=== PATIENT | male | born 1945 | race Caucasian/White ===

== ENCOUNTER 2017-11-20 08:27 | Emergency (ER) | payer MEDICARE, BC ==
[~2017-11-20] VITALS: Ht 177.8 cm; Wt 77.3 kg
[~2017-11-20 08:27] MED LIST: FLONASE NASAL50 MCG; MUCINEX600 MG PO; PULMICORT FLEX90 MCG IN; ZITHROMAX500 MG PO
[2017-11-20] MEDS ORDERED: DICLOFENAC50 MG PO (08:56)
[2017-11-20 09:09] LABS: HEMATOCRIT 42.4 % (39.0-50.0); HEMOGLOBIN 14.1 g/dl (14.0-18.0); IMMATURE GRANULOCYTES 0.3 % (0.0-5.0); MEAN CELL VOLUME 98.4 fL CALC (80.0-100.0); MEAN CORPUSCULAR HGB 32.7 pG CALC (26.0-32.0); MEAN CORPUSCULAR HGB CONC 33.3 g/L CALC (32.0-36.0); NEUT# 5.5 thou/uL (1.82-7.42); RED BLOOD COUNT 4.31 mill/uL (4.70-6.10); RED CELL DISTRI WIDTH 11.8 % (11.5-15.5)
[2017-11-20 09:27] LABS: ALBUMIN 4.1 g/dL (3.2-5.0); BILIRUBIN, TOTAL 0.5 mg/dL (0.0-1.4); CREATININE 1.4 mg/dL (0.7-1.3); TOTAL PROTEIN 6.8 g/dL (6.3-8.2)
[2017-11-20 10:25] LABS: URINE BILIRUBIN - DIPSTICK NEGATIVE (NEGATIVE); URINE BLOOD DIPSTICK NEGATIVE (NEGATIVE); URINE COLOR YELLOW; URINE GLUCOSE - DIPSTICK NEGATIVE (NEGATIVE); URINE KETONE NEGATIVE (NEGATIVE); URINE LEUK ESTERASE NEGATIVE (NEGATIVE); URINE NITRITE - DIPSTICK NEGATIVE (Negative); URINE PROTEIN - DIPSTICK NEGATIVE (NEG-TRACE); URINE SPECIFIC GRAVITY 1.025; URINE UROBILINOGEN - DIPSTICK 0.2 E.U./dL (0.2)
[2017-11-20 10:27] LABS: URINE CLARITY CLEAR
[2017-11-20 11:44] VITALS: BP 145/88
[2017-11-20] MEDS ORDERED: BENTYL10 MG PO (12:18)
[2017-11-20] MEDS ORDERED: ONDANSETRON4 MG PO (12:18)
== END 2017-11-20 12:32 | disposition home or self-care (01) ==
LOC: ED 08:27
PROVIDERS: Emergency Medicine
DX: K52.9 Noninfective gastroenteritis and colitis, unspecified (principal); R00.1 Bradycardia, unspecified

== ENCOUNTER 2017-11-23 08:39 | Emergency (ER) | payer MEDICARE, BC ==
[~2017-11-23] VITALS: Ht 177.8 cm; Wt 70.0 kg
[~2017-11-23 08:39] MED LIST changes: +BENTYL10 MG PO; +DICLOFENAC50 MG PO; +ONDANSETRON4 MG PO
[2017-11-23] MEDS ORDERED: METRONIDAZOL500 MG PO (09:56)
[2017-11-23] MEDS ORDERED: BENTYL10 MG PO (09:56)
[2017-11-23] MEDS ORDERED: CIPROFLOXACN500 MG PO (09:56)
[2017-11-23 10:08] VITALS: BP 138/76
[2017-11-23 11:04] LABS: C. DIFFICILE TOXIN A&B NEGATIVE (NEGATIVE)
== END 2017-11-23 10:20 | disposition home or self-care (01) ==
LOC: ED 08:39
PROVIDERS: Emergency Medicine
DX: R19.7 Diarrhea, unspecified (principal)

== ENCOUNTER → 2018-05-20 | Outpatient (REF) | payer MEDICARE, BC ==
[~2018-05-20] MED LIST changes: +CIPROFLOXACN500 MG PO; +METRONIDAZOL500 MG PO
== END | disposition home or self-care (01) ==
LOC: CT 09:57
PROVIDERS: ATTEND Nurse Practitioner
DX: G45.9 Transient cerebral ischemic attack, unspecified (principal)

== ENCOUNTER → 2018-05-22 | Outpatient (REF) | payer MEDICARE, BC ==
[2018-05-22 08:31] LABS: HEMATOCRIT 44.2 % (39.0-50.0); HEMOGLOBIN 14.5 g/dl (14.0-18.0); MEAN CELL VOLUME 97.8 fL CALC (80.0-100.0); MEAN CORPUSCULAR HGB 32.1 pG CALC (26.0-32.0); MEAN CORPUSCULAR HGB CONC 32.8 g/L CALC (32.0-36.0); RED BLOOD COUNT 4.52 mill/uL (4.70-6.10); RED CELL DISTRI WIDTH 11.9 % (11.5-15.5)
[2018-05-22 09:49] LABS: ALBUMIN 4.6 g/dL (3.2-5.0); ALKALINE PHOSPHATASE 51 u/l (38-126); ANION GAP 13 (6-22 (CALC)); BILIRUBIN, TOTAL 0.9 mg/dL (0.0-1.4); BUN 21 mg/dL (8-23); BUN/CREATININE RATIO 16 (12-20 (CALC)); CALCULATED LDLCHOLESTEROL 165 mg/dL (62-129 (CALC)); CARBON DIOXIDE 27 mmol/l (22-30); CHLORIDE 103 mmol/l (95-108); CHOLESTEROL HDL RATIO 5.6 (<4.4 (CALC)); CREATININE 1.3 mg/dL (0.7-1.3); GFR 54 ML/MIN (>=60 (CALC)); GFR FOR AFR.AMER. > 60 ML/MIN (>=60 (CALC)); HDL CHOLESTEROL 44 mg/dL (>=40); POTASSIUM 4.7 mmol/l (3.5-5.1); SGOT/AST 29 u/l (19-48); SODIUM 139 mmol/l (137-146); TOTAL CHOLESTEROL 249 mg/dl (0-199); TOTAL PROTEIN 7.3 g/dL (6.3-8.2); TOTAL TRIGLYCERIDES 199 mg/dl (30-149); VLDL CHOLESTROL 40 mg/dl (0-38 (CALC))
[2018-05-22 10:13] LABS: TSH, 3RD GENERATION 3.54 uIU/mL (0.47 - 4.68)
== END | disposition home or self-care (01) ==
LOC: LAB 08:05
PROVIDERS: ATTEND Nurse Practitioner
DX: J45.909 Unspecified asthma, uncomplicated (principal); M15.9 Polyosteoarthritis, unspecified; E78.5 Hyperlipidemia, unspecified

== ENCOUNTER 2023-05-06 01:36 | Emergency (ER) | payer MEDICARE, OTHER ==
[~2023-05-06] VITALS: Ht 177.8 cm; Wt 73.0 kg
[2023-05-06] VITALS (9 sets, daily range): BP systolic 145–177; BP diastolic 77–90
[~2023-05-06 01:36] MED LIST changes: +DOXY-CAPS100 MG PO
[2023-05-06] MEDS ORDERED: TYLENOL500 MG PO (02:00)
[2023-05-06] MEDS ORDERED: oxyCODONE 10MG/APAP 325 MG 1 COMBO TAB PO ONE (02:15)
[2023-05-06] MEDS ORDERED: predniSONE 20 MG/TAB PO ONE (02:15)
[2023-05-06] MEDS ORDERED: PERCOCET 10/31 COMBO PO ×2 (04:02→13:03)
[2023-05-06] MEDS ORDERED: PREDNISONE20 MG PO (04:02)
== END 2023-05-06 04:15 | disposition home or self-care (01) ==
LOC: ED 01:36
DX: M51.17 Intervertebral disc disorders with radiculopathy, lumbosacral region (principal)

== ENCOUNTER 2024-05-06 02:18 | Observation (INO) | payer MEDICARE, OTHER ==
[~2024-05-06] VITALS: Ht 177.8 cm; Wt 70.4 kg
[2024-05-06] VITALS (8 sets, daily range): BP systolic 122–192; BP diastolic 72–104
[~2024-05-06 02:18] MED LIST changes: +PERCOCET 10/31 COMBO PO; +PREDNISONE20 MG PO; +TYLENOL500 MG PO
--- NOTE | 2024-05-06 02:18 | NUR ---
PT TO RM #5 VIA EMS AT BEDSIDE. PT CONNECTED ON ALL MONITORING.
[2024-05-06] MEDS ORDERED: ONDANSETRON HCl 4 MG/2 ML SDV IV ONE (02:35)
[2024-05-06] MEDS ORDERED: ACETAMINOPHEN 1,000 MG/100 ML VIAL IV ONE (02:40)
--- NOTE | 2024-05-06 03:26 | NUR ---
PT RESTING IN RM AWAITING RESULTS AT THIS TIME IN NO APPARENT DISTRESS. CALL LIGHT WITHIN REACH AND PT HAS NO NEEDS OR CONCERNS.
[2024-05-06 03:33] LABS: ALBUMIN 4.2 g/dL (3.2-5.0); ALKALINE PHOSPHATASE 55 u/l (38-126); ANION GAP 11 (6-22 (CALC)); BILIRUBIN, TOTAL 0.6 mg/dL (0.2-1.3); BUN 15 mg/dL (8-23); BUN/CREATININE RATIO 12 (12-20 (CALC)); CARBON DIOXIDE 25 mmol/l (22-30); CHLORIDE 99 mmol/l (95-108); CREATININE 1.2 mg/dL (0.7-1.3); ESTIMATED GFR 61 ML/MIN (>=90 (CALC)); POTASSIUM 4.6 mmol/l (3.5-5.1); SGOT/AST 43 u/l (19-48); TOTAL PROTEIN 7.1 g/dL (6.3-8.2)
[2024-05-06 03:38] LABS: SODIUM 130 mmol/l (137-146)
[2024-05-06 03:45] LABS: BASO% 0.9 % (0-3); EOS% 0.9 % (0-8); HEMATOCRIT 40.1 % (39.0-50.0); HEMOGLOBIN 13.2 g/dl (14.0-18.0); IMMATURE GRANULOCYTES 0.5 % (0.0-5.0); LYMPH% 39.8 % (15-41); MEAN CORPUSCULAR HGB 32.6 pG CALC (26.0-32.0); MEAN CORPUSCULAR HGB CONC 32.9 g/dL CAL (32.0-36.0); MONO% 11.6 % (2-13); NEUT% 46.3 % (42-76); RED BLOOD COUNT 4.05 mill/uL (4.70-6.10); RED CELL DISTRI WIDTH 11.5 % (11.5-15.5)
--- NOTE | 2024-05-06 04:31 | NUR ---
PT RESTING IN RM AWAITING RESULTS AT THIS TIME IN NO APPARENT DISTRESS. CALL LIGHT WITHIN REACH AND PT HAS NO NEEDS OR CONCERNS.
--- NOTE | 2024-05-06 05:31 | NUR ---
PT RESTING IN RM AWAITING RESULTS AT THIS TIME IN NO APPARENT DISTRESS. CALL LIGHT WITHIN REACH AND PT HAS NO NEEDS OR CONCERNS.
--- NOTE | 2024-05-06 06:29 | NUR ---
PT RESTING IN RM AWAITING RESULTS AT THIS TIME IN NO APPARENT DISTRESS. CALL LIGHT WITHIN REACH AND PT HAS NO NEEDS OR CONCERNS.
--- NOTE | 2024-05-06 07:04 | NUR ---
REPORT GIVEN TO NGUYEN PAYNE AND CARE RELINQUISHED AT THIS TIME.
--- NOTE | 2024-05-06 07:46 | NUR ---
pt walked to the bathroom, pt changed into a gown, pt back in bed, vss, call light within reach, no-slip socks placed on pts feet, gave pt a warm riddhi
--- NOTE | 2024-05-06 08:15 | NUR ---
REPORT RECEIVED FROM NGUYEN GEE
--- NOTE | 2024-05-06 08:15 | NUR ---
CALLED [facility] SPOKE WITH [facility], GAVE PT INFO, PT TO BE TRANSPORTED TO [facility] BED 278
[2024-05-06] MEDS ORDERED: PAXLOVID PO (08:20)
[2024-05-06] MEDS ORDERED: VOLTAREN75 MG PO (08:20)
[2024-05-06] MEDS ORDERED: NEURONTIN100 MG PO (08:21)
[2024-05-06] MEDS ORDERED: ALL DAY ALLG10 MG PO (08:21)
--- NOTE | 2024-05-06 08:22 | NUR ---
PT ARRIVED TO MED/SURG ROOM 278 IN STABLE CONDITION VIA WC ACCOMPANIED BY NGUYEN GEE. PT AMBULATED TO STANDING SCALE AND BEDSIDE. WT AND VS OBTAINED.PT REPORTS N/V/D AND WEAKNESS SINCE 05/02/24 BEING DX WITH COVID ON 05/04/24. PT A&O X3, ORIENTED TO ROOM AND CALL LIGHT SYSTEM. PT DENIES ANY CURRENT PAIN OR DISCOMFORTS, PAIN SCALE AND REPORTING EDUCATED.ASSESSMENT COMPLETED; RESPIRATIONS EVEN AND UNLABORED ON RA,CLEAR LUNG SOUNDS. ABDOMEN SOFT ON PALPATION AND ACTIVE IN ALL 4 QUADRANTS, LAST 05/06/24. STRONG PEDAL PULSES;SKIN INTACT.#22G TO LAC FLUSHED AND PATENT, EMS #20G TO LH PATENT AND NS TO BE STARTED @ 100ML/HR. FALL AND ALLERGY BAND APPLIED TO RIGHT ARM. PT ENCOURAGED TO CALL FOR ASSISTANCE IF NEEDED.CALL LIGHT IN REACH;FREQUENT ROUNDS MADE.
--- NOTE | 2024-05-06 08:54 | NUR ---
AT BEDSIDE DISCUSSING POC.
[2024-05-06] MEDS ORDERED: REMDESIVIR 200 MG in SODIUM CHLORIDE 0.9% 210 ML IV SCH (09:00)
--- NOTE | 2024-05-06 09:05 | NUR ---
PT RESTING IN SEMI FOWLERS POSITION,A&O TO PERSON. HX DEMENTIA. PT DENIES ANY CURRENT PAIN OR DISCOMFORTS, PAIN SCALE AND REPORTING EDUCATED. ASSESSMENT COMPLETED.RESPIRATIONS SHALLOW ON RA, WHEEZE/DIMINISHED LUNG SOUNDS NOTED WITH NON-PRODUCTIVE COUGH. ABDOMEN SOFT ON PALPATION AND ACTIVE IN ALL 4 QUADRANTS. WEAK PEDAL PULSES.GENERALIZED BRUISING NOTED BUT SKIN OTHERWISE INTACT. TELE MONITORING IN PLACE. NO IV SITE NOTED, NEW #22G TO RAC STARTED ON 1ST ATTEMPT BY THIS GLASS SILVERER.PT DENIES ANY ADDITIONAL NEEDS AND IS ENCOURAGED TO CALL FOR ASSISTANCE IF NEEDED.FALL PRECAUTIONS IN PLACE WITH BED IN THE LOWEST POSITION AND BED ALARM ON FOR SAFETY.CALL LIGHT IN REACH;FREQUENT ROUNDS MADE.
[2024-05-06] MEDS ORDERED: SODIUM CHLORIDE 0.9% 1,000 ML IV PRN (09:40)
[2024-05-06] MEDS ORDERED: ALBUTEROL SULFATE 2.5 MG VIAL IN PRN (09:45)
[2024-05-06] MEDS ORDERED: ACETAMINOPHEN 325 MG/TAB PO PRN (11:55)
--- NOTE | 2024-05-06 12:15 | NUR ---
PT RESTING IN SEMI FOWLERS POSITION. RESPIRATIONS EVEN AND UNLABORED ON RA. PT REPORTS HEADACHE PAIN AND IS MEDICATED WITH PRN TYLENOL 650MG PO AT THIS TIME. IV SITES X2 PATENT WITH NS INFUSING WITH EASE PER ORDER.PT DENIES ANY ADDITIONAL NEEDS AND IS ENCOURAGED TO CALL FOR ASSISTANCE IF NEEDED.CALL LIGHT IN REACH;FREQUENT ROUNDS MADE.
--- NOTE | 2024-05-06 15:38 | NUR ---
PT RESTING IN SUPINE POSITION.RESPIRATIONS EVEN AND UNLABORED ON RA. PT DENIES ANY CURRENT PAIN BUT DOES REPORT INSOMNIA OVER THE PAST FEW DAYS AND REQUESTS MEDICATION FOR SLEEP THIS EVENING. CLAIR, SARARP TO BE NOTIFIED OF REQUEST. IV SITE X2 REMAIN PATENT WITH NS INFUSING PER ORDER. URINAL EMPTIED OF 200CC OF CLEAR/YELLOW URINE.PT DENIES ANY ADDITIONAL NEEDS.CALL LIGHT IN REACH;FREQUENT ROUNDS MADE.
[2024-05-06] MEDS ORDERED: Zaleplon 5 MG/CAP PO PRN (15:50)
[2024-05-06] MEDS ORDERED: ALPRAZolam 0.25 MG PO PRN (16:55)
--- NOTE | 2024-05-06 17:07 | NUR ---
PT MEDICATED WITH PRN XANAX 0.25MG PO
--- NOTE | 2024-05-06 20:15 | NUR ---
PT A X4, ABLE TO MAKE NEEDS KNOWN. PT AFEBRILE. PT DENIES CP, SOB OR DISTRESS AT THIS TIME. LS CLEAR THROUGHOUT, BSX4 ACTIVE. IV INFUSING ORDERED, NO S/S OF INFILTRATION OR REDNESS AT SITE. CALL LIGHT IN REACH. WILL MONITOR.
--- NOTE | 2024-05-07 00:15 | NUR ---
PT RESTING IN BED WITH EYES CLOSED. NO DISTRESS NOT AT THIS TIME. RESP. EVEN/ UNLABORED. CALL LIGHT IN REACH. WILL MONITOR.
--- NOTE | 2024-05-07 03:15 | NUR ---
pt medicated per request for chang as ordered, pt stated relief of chang. PRN effective. call light in reach. will monitor.
[2024-05-07 03:40] VITALS: BP 150/78
--- NOTE | 2024-05-07 04:15 | NUR ---
PT RESTING IN BED WITH EYES CLOSED. RESP. EVEN/UNLABORED, PRECAUTIONS INTACT, NO DISTRESS NOTED. IV INTACT, INFUSING NS@100ML/HR, NO S/S OF REDNESS OR INFILTRATION NOTED AT SITE. CALL LIGHT IN REACH. WILL MONITOR.
[2024-05-07 05:26] LABS: HEMATOCRIT 37.7 % (39.0-50.0); LYMPH% 13.4 % (15-41); MEAN CELL VOLUME 97.7 fL CALC (80.0-100.0); MEAN CORPUSCULAR HGB 33.7 pG CALC (26.0-32.0); MEAN CORPUSCULAR HGB CONC 34.5 g/dL CAL (32.0-36.0); MONO% 3.3 % (2-13); NEUT# 4.61 thou/uL (1.82-7.42); NEUT% 83.3 % (42-76); RED BLOOD COUNT 3.86 mill/uL (4.70-6.10); RED CELL DISTRI WIDTH 11.5 % (11.5-15.5)
[2024-05-07 05:34] LABS: ALBUMIN 3.5 g/dL (3.2-5.0); BILIRUBIN, TOTAL 0.6 mg/dL (0.2-1.3); CREATININE 1.1 mg/dL (0.7-1.3); MAGNESIUM 1.7 mg/dL (1.6-2.3)
[2024-05-07 05:38] LABS: POTASSIUM 5.2 mmol/l (3.5-5.1)
--- NOTE | 2024-05-07 07:36 | NUR ---
PATIENT LYING IN BED WATCHING TV. BREATHING UNLABORED ON ROOM AIR. IV IN LAC INFUSING FLUIDS PER EMAR;SITE CLEAN AND INTACT. IV IN LEFT HAND SL;SITE CLEAN AND INTACT. PATIENT DENIES ANY NEEDS AT THIS TIME. PT REQUEST TO HAVE DIET CHANGED;INFORMED PT DIETARY WILL BE INFORMED. NO OTHER NEEDS AT THIS TIME. BED IN LOWEST POSITION. PERSONAL ITEMS WITHIN REACH. POC ONGOING. ASSESSMENT COMPLETED.
[2024-05-07 08:13] VITALS: BP 151/94
--- NOTE | 2024-05-07 12:07 | NUR ---
PATIENT SITTING UP ON THE EDGE OF THE BED EATING LUNCH. BREATHING UNLABORED ON ROOM AIR. IV IN LAC INFUSING FLUIDS PER EMAR;SITE CLEAN AND INTACT. IV IN LEFT HAND SL;SITE CLEAN AND INTACT. PT DENIES ANY PAIN OR N/D/V AT THIS TIME. BED IN LOWEST POSITION. POC ONGOING. NO NEEDS AT THIS TIME.
[2024-05-07 14:42] VITALS: BP 183/85
--- NOTE | 2024-05-07 16:13 | NUR ---
PATIENT LYING SEMI-FOWLERS IN BED WATCHING TV. BREATHING UNLABORED ON ROOM AIR. TELE INTACT. IV IN LEFT HAND INFUSING FLUIDS PER EMAR;SITE CLEAN AND INTACT. PT DENIES ANY PAIN OR N/D/V AT THIS TIME.STATES TO FEEL A LOT BETTER. PERSONAL ITEMS WELL CALL LIGHT WITHIN REACH. BED IN LOWEST POSITION. POC ONGOING. NO OTHER NEEDS AT THIS TIME.
[2024-05-07 19:35] VITALS: BP 163/80
[2024-05-07] MEDS ORDERED: amLODIPine BESYLATE 5 MG/TAB PO SCH ×2 (19:40→19:56)
--- NOTE | 2024-05-07 19:45 | NUR ---
PATIENT OBSERVED RESTING IN BED. ALERT AND ABLE TO MAKE NEEDS KNOWN. ASSESSMENT COMPLETE. NO COUGH OBSERVED AT THIS TIME. NO DISTRESS NOTED. DENIES NEEDING ANYTHING AT THIS TIME. REMAINS ON ISOLATION FOR COVID. CALL LAW AND BELONGINGS IN REACH.
[2024-05-07] MEDS ORDERED: FAMOTIDINE 20 MG/TAB PO SCH (19:58)
--- NOTE | 2024-05-08 00:56 | NUR ---
PATIENT REMAINS RESTING IN BED ON HIS LEFT SIDE. NO DISTRESS NOTED. NO COMPLAINTS VOICED. DENIES NEEDING ANYTHING AT THIS TIME. BED IN LOW POSITION. CALL LAW IN REACH.
[2024-05-08 04:00] VITALS: BP 144/72
--- NOTE | 2024-05-08 04:00 | NUR ---
PATIENT REMAINS RESTING. DENIES NEEDING ANYTHING. BED IN LOW POSITION. CALL LAW IN REACH.
[2024-05-08 04:31] VITALS: BP 144/72
[2024-05-08 05:40] LABS: BASO% 0.1 % (0-3); HEMATOCRIT 37.3 % (39.0-50.0); HEMOGLOBIN 12.8 g/dl (14.0-18.0); IMMATURE GRANULOCYTES 0.1 % (0.0-5.0); MEAN CELL VOLUME 97.6 fL CALC (80.0-100.0); MEAN CORPUSCULAR HGB 33.5 pG CALC (26.0-32.0); MEAN CORPUSCULAR HGB CONC 34.3 g/dL CAL (32.0-36.0); NEUT# 13.33 thou/uL (1.82-7.42); NEUT% 90.8 % (42-76); RED BLOOD COUNT 3.82 mill/uL (4.70-6.10); RED CELL DISTRI WIDTH 11.7 % (11.5-15.5)
[2024-05-08 05:52] LABS: ALBUMIN 3.4 g/dL (3.2-5.0); BILIRUBIN, TOTAL 0.5 mg/dL (0.2-1.3); CREATININE 1.1 mg/dL (0.7-1.3); MAGNESIUM 2.1 mg/dL (1.6-2.3); POTASSIUM 4.9 mmol/l (3.5-5.1)
[2024-05-08 07:13] VITALS: BP 146/75
--- NOTE | 2024-05-08 07:23 | NUR ---
PATIENT LYING SEMI-FOWLERS IN BED AWAKE WATCHING TV. BREATHING UNLABORED ON ROOM AIR. IV IN LEFT HAND INFUSING FLUIDS PER EMAR;SITE CLEAN AND INTACT. PT DENIES ANY PAIN OR N/D/V AT THIS TIME. PERSONAL ITEMS WELL CALL LIGHT NEAR;PT VERBALIZED UNDERSTANDING OF USE.BED IN LOWEST POSITION. POC ONGOING. NO NEEDS AT THIS TIME.
[2024-05-08 08:05] VITALS: BP 165/81
[2024-05-08] MEDS ORDERED: FAMOTIDINE 20 MG/TAB PO SCH ×2 (09:00→19:55)
--- NOTE | 2024-05-08 12:14 | NUR ---
PATIENT FINISHING LUNCH. BREATHING UNLABORED ON ROOM AIR. DISCHARGE PAPERS REVIEWED AND SIGNED. PATIENT AWAITING RIDE. PERSONAL ITEMS GATHERED. NO OTHER NEEDS AT THIS TIME.
--- NOTE | 2024-05-08 12:28 | NUR ---
Discharge instructions given. Patient verbalizes understanding of same. Discharged in stable condition via Ambulatory to Home with *Other. All belongings sent with pt.
== END 2024-05-08 12:24 | disposition home or self-care (01) ==
LOC: ED 02:18 → ED-I 02:46 → ED 02:46 → MS2 07:14
PROVIDERS: Emergency Medicine; Nurse Practitioner Family; ADMIT Internal Medicine; ATTEND Internal Medicine
DX: U07.1 COVID-19 (principal); A08.39 Other viral enteritis; E86.0 Dehydration; J44.9 Chronic obstructive pulmonary disease, unspecified; D72.819 Decreased white blood cell count, unspecified
CPT/HCPCS: G0378; J0131; J2405; Q9967